=== PATIENT | female | born 1955 | race Caucasian/White ===

== ENCOUNTER 2016-10-31 04:56 | Observation (INO) | payer BC ==
[~2016-10-31 04:56] MED LIST: ASPIRIN325 M3 PO; AVASTIN100 MG/4 M IV; BENADRYL25 M3 PO; CEFDINIR300 M1 PO; CHEMOTHERAPY; CIPRO500 M2 PO; COMPAZINE10 MG PO; CULTURELLE1 EAC1 PO; FLUOROURAC5 GM/100 M IV; HYDROCHLOROTH12.5 M3 PO; HYDROCHLOROTHIA25 M1 PO; IBUPROFEN400 M1 PO; KEPPRA500 M3 PO; METOPROLOL SUC100 M1 PO; MIRALAX17 G2 PO; MOBIC15 M2 PO; NORCO 5-325 TA1 EACH PO; NORVASC10 M2 PO; PRILOSEC OTC20 M1 PO; PRINIVIL20 M1 PO; TOPROL XL50 M1 PO; ZESTRIL20 M3 PO; ZOFRAN8 M1 PO; [UNRECOGNIZED DRUG - OTHER] IV
[2016-10-31 06:00] LABS: ALB/GLOB RATIO 0.5 (0.8-2.0); ALBUMIN 2.2 g/dl (3.5-5.0); ALKALINE PHOSPHATASE 227 U/L (33-138); ALT/SGPT 41 U/L (12-78); ANION GAP 14 mmol/L (0-20); AST/SGOT 22 U/L (10-40); BILIRUBIN,TOTAL 0.8 mg/dl (0-1.5); BLOOD UREA NITROGEN 19 mg/dl (6-24); CALCIUM 8.5 mg/dl (8.5-10.5); CARBON DIOXIDE-VENOUS 22 mmol/L (22-32); CHLORIDE 106 mmol/l (96-110); CREATININE 0.68 mg/dl (0.50-1.10); GLUCOSE 100 mg/dL (70-110); POTASSIUM 4.2 mmol/L (3.7-5.1); SODIUM 138 mmol/L (135-145); eGFR VALUE FOR BLACK >90 mL/Min
[2016-10-31 06:59] LABS: BASO % 0.2 % (0-2); EOS % 0.6 % (0-7); HCT-HEMATOCRIT 26.1 % (34.0-49.0); HGB-HEMOGLOBIN 8.4 gm/dl (12.0-15.5); IMMATURE GRANULOCYTES ABSOLUTE 0.02 tho/cmm (0-0.03); IMMATURE GRANULOCYTES PERCENT 0.4 % (0-0.3); LYMPH % 17.4 % (20-45); LYMPH ABSOLUTE COUNT 0.9 tho/cmm (0.8-4.5); MCH (MEAN CORPUSCULAR HGB) 26.6 pg (28.0-32.0); MCHC MEAN CORPUSCULAR HGB CONC 32.2 % (32.0-36.0); MCV (MEAN CELL VOLUME) 82.6 fl (82.0-96.0); MEAN PLATELET VOLUME 11.6 cmc (9.4-12.4); MONOCYTE ABSOLUTE COUNT 0.8 tho/cmm (0.0-1.2); NEUTROPHIL ABSOLUTE COUNT 3.2 tho/cmm (1.6-8.0); NEUTROPHIL-AUTOMATED 3.2 tho/cmm (1.6-8.0); NEUTROPHILS % 65.4 % (40-80); PLATELET COUNT 190 tho/cmm (150-450); RED BLOOD COUNT 3.16 mil/cmm (4.00-5.20); RED CELL DISTRIBUTION WIDTH 21.1 % (12.4-16.4); WHITE BLOOD COUNT 4.9 tho/cmm (4.0-10.0)
[2016-11-01 06:31] LABS: HCT-HEMATOCRIT 27.6 % (34.0-49.0); HGB-HEMOGLOBIN 8.6 gm/dl (12.0-15.5); MCH (MEAN CORPUSCULAR HGB) 26.2 pg (28.0-32.0); MCHC MEAN CORPUSCULAR HGB CONC 31.2 % (32.0-36.0); MCV (MEAN CELL VOLUME) 84.1 fl (82.0-96.0); MEAN PLATELET VOLUME 9.4 cmc (9.4-12.4); NEUTROPHIL-AUTOMATED 2.8 tho/cmm (1.6-8.0); PLATELET COUNT 267 tho/cmm (150-450); RED BLOOD COUNT 3.28 mil/cmm (4.00-5.20); RED CELL DISTRIBUTION WIDTH 21.7 % (12.4-16.4)
[2016-11-01 06:35] LABS: ANION GAP 13 mmol/L (0-20); BLOOD UREA NITROGEN 17 mg/dl (6-24); CALCIUM 9.1 mg/dl (8.5-10.5); CARBON DIOXIDE-VENOUS 22 mmol/L (22-32); CHLORIDE 108 mmol/l (96-110); CREATININE 0.76 mg/dl (0.50-1.10); GLUCOSE 115 mg/dL (70-110); POTASSIUM 4.2 mmol/L (3.7-5.1); SODIUM 139 mmol/L (135-145); eGFR VALUE FOR BLACK >90 mL/Min
[2016-11-01 08:40] LABS: BAND % 39 % (0-20); BAND ABSOLUTE COUNT 1.6 tho/cmm (0-2.0)
[2016-11-01] MEDS ORDERED: LOVENOX80 MG/0.1 SC (11:06)
[2016-11-01] MEDS ORDERED: NORCO 5-325 TA1 EACH PO (11:09)
[2016-11-01] MEDS ORDERED: PROTONIX40 M2 PO (11:10)
[2016-11-01] MEDS ORDERED: PREDNISONE10 M1 PO (11:14)
== END 2016-11-01 12:15 ==
LOC: EDMED 04:56 → EMR2 06:40 → 5WF 07:45
PROVIDERS: Emergency Medicine Emergency Medical Services; ADMIT Hospitalist
DX: I26.99 Other pulmonary embolism without acute cor pulmonale (principal); I82.621 Acute embolism and thrombosis of deep veins of right upper extremity; R07.81 Pleurodynia; C18.9 Malignant neoplasm of colon, unspecified; C78.7 Secondary malignant neoplasm of liver and intrahepatic bile duct; D64.81 Anemia due to antineoplastic chemotherapy; R91.1 Solitary pulmonary nodule; K44.9 Diaphragmatic hernia without obstruction or gangrene; I10 Essential (primary) hypertension; G89.29 Other chronic pain; M51.37 Other intervertebral disc degeneration, lumbosacral region; Z79.1 Long term (current) use of non-steroidal anti-inflammatories (NSAID); Z79.899 Other long term (current) drug therapy; Z90.89 Acquired absence of other organs; Z98.890 Other specified postprocedural states
CPT/HCPCS: G0378; J1650; J1885; J2270; J2920; J7030; Q9967

== ENCOUNTER 2016-11-30 01:24 | Inpatient (IN) | payer BC ==
[~2016-11-30 01:24] MED LIST changes: +LOVENOX80 MG/0.1 SC; +PREDNISONE10 M1 PO; +PROTONIX40 M2 PO
[2016-11-30 02:28] LABS: HGB-HEMOGLOBIN 6.3 gm/dl (12.0-15.5); MCH (MEAN CORPUSCULAR HGB) 25.3 pg (28.0-32.0); MCV (MEAN CELL VOLUME) 81.1 fl (82.0-96.0); NEUTROPHIL-AUTOMATED 6.6 tho/cmm (1.6-8.0); PLATELET COUNT 86 tho/cmm (150-450); RED BLOOD COUNT 2.49 mil/cmm (4.00-5.20); RED CELL DISTRIBUTION WIDTH 23.6 % (12.4-16.4); WHITE BLOOD COUNT 8.2 tho/cmm (4.0-10.0)
[2016-11-30 02:36] LABS: HCT-HEMATOCRIT 20.2 % (34.0-49.0); MCHC MEAN CORPUSCULAR HGB CONC 31.2 % (32.0-36.0)
[2016-11-30 02:53] LABS: INR 1.2 INR (0.9-1.1); PROTHROMBIN TIME 14.2 SECONDS (9.0-13.6)
[2016-11-30 03:00] LABS: ALB/GLOB RATIO 0.4 (0.8-2.0); ALBUMIN 1.7 g/dl (3.5-5.0); ALT/SGPT 22 U/L (12-78); ANION GAP 21 mmol/L (0-20); AST/SGOT 29 U/L (10-40); BILIRUBIN,TOTAL 0.5 mg/dl (0-1.5); BLOOD UREA NITROGEN 72 mg/dl (6-24); CALCIUM 7.5 mg/dl (8.5-10.5); CARBON DIOXIDE-VENOUS 17 mmol/L (22-32); CHLORIDE 107 mmol/l (96-110); CREATININE 3.11 mg/dl (0.50-1.10); MAGNESIUM 2.1 mg/dl (1.8-2.6); POTASSIUM 3.6 mmol/L (3.7-5.1); SODIUM 141 mmol/L (135-145); eGFR VALUE FOR BLACK 18 mL/Min
[2016-11-30 03:05] LABS: TSH-THYROID STIMULATING HORM. 4.36 uIU/ml (0.40-3.80)
[2016-11-30 03:10] LABS: BAND % 17 % (0-20); BAND ABSOLUTE COUNT 1.4 tho/cmm (0-2.0)
[2016-11-30 03:11] LABS: ALKALINE PHOSPHATASE 455 U/L (33-138); GLUCOSE 65 mg/dL (70-110)
[2016-11-30 03:21] LABS: PROCALCITONIN 82.45 ng/ml (0.05-0.09)
[2016-11-30 03:35] LABS: URINE BILIRUBIN NEGATIVE (NEG); URINE BLOOD SMALL (NEG); URINE GLUCOSE (UA) NEGATIVE (NEG); URINE KETONE NEGATIVE (NEG); URINE LEUKOCYTE ESTERASE POSITIVE (NEG); URINE NITRITE NEGATIVE (NEG); URINE PROTEIN MODERATE (NEG); URINE SPECIFIC GRAVITY 1.015 (1.003-1.030)
[2016-11-30 03:41] LABS: URINE APPEARANCE HAZY; URINE COLOR YELLOW
[2016-11-30 03:50] LABS: URINE BACTERIA 4+; URINE EPITHELIAL CELLS 0-1 /[HPF] (0-10); URINE RBC 0-5 /[HPF] (0-5); URINE WBC 30-50 /[HPF] (0-5)
[2016-11-30 06:56] LABS: ABG CO2 ARTERIAL 17 mmol/L (21-27); ARTERIAL BLD GAS O2 SATURATION 95 % (95-98); ARTERIAL BLOOD GAS PCO2 28 mmHg (32-45); ARTERIAL PO2 73 mmHg (70-100); BICARBONATE 16 mmol/L (21-28); BLOOD GAS BASE EXCESS -8 mM/L (-/+3); PH 7.38 Units (7.35-7.45)
[2016-11-30 08:47] LABS: ANION GAP 16 mmol/L (0-20); BLOOD UREA NITROGEN 65 mg/dl (6-24); CALCIUM 7.2 mg/dl (8.5-10.5); CARBON DIOXIDE-VENOUS 18 mmol/L (22-32); CHLORIDE 110 mmol/l (96-110); CREATININE 2.36 mg/dl (0.50-1.10); POTASSIUM 3.7 mmol/L (3.7-5.1); SODIUM 140 mmol/L (135-145); eGFR VALUE FOR BLACK 25 mL/Min
[2016-11-30 08:49] LABS: GLUCOSE 116 mg/dL (70-110)
[2016-11-30] MEDS ORDERED: MEGESTROL ACETA40 M1 PO (11:11)
[2016-11-30 11:43] LABS: HGB-HEMOGLOBIN 8.1 gm/dl (12.0-15.5)
[2016-11-30] MEDS ORDERED: ZALTRAP (15:40)
[2016-11-30] MEDS ORDERED: [UNRECOGNIZED DRUG - OTHER] (15:41)
[2016-12-01 04:23] LABS: BASO % 0.2 % (0-2); EOS % 0.1 % (0-7); HGB-HEMOGLOBIN 8.9 gm/dl (12.0-15.5); IMMATURE GRANULOCYTES ABSOLUTE 0.31 tho/cmm (0-0.03); IMMATURE GRANULOCYTES PERCENT 2.1 % (0-0.3); LYMPH % 11.6 % (20-45); LYMPH ABSOLUTE COUNT 1.7 tho/cmm (0.8-4.5); MCV (MEAN CELL VOLUME) 81.6 fl (82.0-96.0); MONO % 4.2 % (0-12); MONOCYTE ABSOLUTE COUNT 0.6 tho/cmm (0.0-1.2); NEUTROPHIL ABSOLUTE COUNT 12.2 tho/cmm (1.6-8.0); NEUTROPHIL-AUTOMATED 12.2 tho/cmm (1.6-8.0); NEUTROPHILS % 81.8 % (40-80); PLATELET COUNT 80 tho/cmm (150-450); RED BLOOD COUNT 3.32 mil/cmm (4.00-5.20)
[2016-12-01 04:26] LABS: HCT-HEMATOCRIT 27.1 % (34.0-49.0); MCH (MEAN CORPUSCULAR HGB) 26.8 pg (28.0-32.0); MCHC MEAN CORPUSCULAR HGB CONC 32.8 % (32.0-36.0); WHITE BLOOD COUNT 14.9 tho/cmm (4.0-10.0)
[2016-12-01 04:43] LABS: ALB/GLOB RATIO 0.3 (0.8-2.0); ALBUMIN 1.4 g/dl (3.5-5.0); ALKALINE PHOSPHATASE 370 U/L (33-138); ALT/SGPT 20 U/L (12-78); ANION GAP 13 mmol/L (0-20); AST/SGOT 37 U/L (10-40); BLOOD UREA NITROGEN 38 mg/dl (6-24); CALCIUM 7.9 mg/dl (8.5-10.5); CARBON DIOXIDE-VENOUS 20 mmol/L (22-32); CHLORIDE 116 mmol/l (96-110); GLUCOSE 102 mg/dL (70-110); POTASSIUM 3.8 mmol/L (3.7-5.1); SODIUM 145 mmol/L (135-145)
[2016-12-01 04:45] LABS: BILIRUBIN,TOTAL 0.8 mg/dl (0-1.5); C-REACTIVE PROTEIN 23.7 mg/dl (0-0.9); CREATININE 1.23 mg/dl (0.50-1.10); eGFR VALUE FOR BLACK 55 mL/Min
[2016-12-02 13:22] LABS: BLOOD UREA NITROGEN 21 mg/dl (6-24); CALCIUM 7.5 mg/dl (8.5-10.5); CARBON DIOXIDE-VENOUS 18 mmol/L (22-32); CHLORIDE 117 mmol/l (96-110); CREATININE 0.86 mg/dl (0.50-1.10); SODIUM 145 mmol/L (135-145); eGFR VALUE FOR BLACK 85 mL/Min
[2016-12-02 13:43] LABS: ANION GAP 13 mmol/L (0-20); GLUCOSE 158 mg/dL (70-110)
[2016-12-03 05:47] LABS: BASO % 0.1 % (0-2); EOS % 0.2 % (0-7); HGB-HEMOGLOBIN 7.6 gm/dl (12.0-15.5); IMMATURE GRANULOCYTES PERCENT 1.7 % (0-0.3); LYMPH ABSOLUTE COUNT 1.6 tho/cmm (0.8-4.5); MCH (MEAN CORPUSCULAR HGB) 26.2 pg (28.0-32.0); MCHC MEAN CORPUSCULAR HGB CONC 31.7 % (32.0-36.0); MCV (MEAN CELL VOLUME) 82.8 fl (82.0-96.0); MONOCYTE ABSOLUTE COUNT 0.9 tho/cmm (0.0-1.2); NEUTROPHIL ABSOLUTE COUNT 14.4 tho/cmm (1.6-8.0); NEUTROPHIL-AUTOMATED 14.4 tho/cmm (1.6-8.0); PLATELET COUNT 100 tho/cmm (150-450); RED CELL DISTRIBUTION WIDTH 21.4 % (12.4-16.4); WHITE BLOOD COUNT 17.2 tho/cmm (4.0-10.0)
[2016-12-03 06:03] LABS: ANION GAP 12 mmol/L (0-20); BLOOD UREA NITROGEN 15 mg/dl (6-24); CALCIUM 7.6 mg/dl (8.5-10.5); CARBON DIOXIDE-VENOUS 19 mmol/L (22-32); CHLORIDE 114 mmol/l (96-110); CREATININE 0.76 mg/dl (0.50-1.10); GLUCOSE 91 mg/dL (70-110); POTASSIUM 3.2 mmol/L (3.7-5.1); SODIUM 142 mmol/L (135-145); eGFR VALUE FOR BLACK >90 mL/Min
[2016-12-03 06:21] LABS: PROCALCITONIN 27.26 ng/ml (0.05-0.09)
[2016-12-04 05:14] LABS: BASO % 0.2 % (0-2); EOS % 0.4 % (0-7); EOSINOPHIL ABSOLUTE COUNT 0.1 tho/cmm (0.0-0.7); HCT-HEMATOCRIT 28.1 % (34.0-49.0); HGB-HEMOGLOBIN 8.8 gm/dl (12.0-15.5); IMMATURE GRANULOCYTES ABSOLUTE 0.43 tho/cmm (0-0.03); IMMATURE GRANULOCYTES PERCENT 2.3 % (0-0.3); LYMPH % 6.9 % (20-45); LYMPH ABSOLUTE COUNT 1.3 tho/cmm (0.8-4.5); MCH (MEAN CORPUSCULAR HGB) 26.4 pg (28.0-32.0); MCHC MEAN CORPUSCULAR HGB CONC 31.3 % (32.0-36.0); MCV (MEAN CELL VOLUME) 84.4 fl (82.0-96.0); MONO % 3.3 % (0-12); MONOCYTE ABSOLUTE COUNT 0.6 tho/cmm (0.0-1.2); NEUTROPHILS % 86.9 % (40-80); PLATELET COUNT 120 tho/cmm (150-450); RED BLOOD COUNT 3.33 mil/cmm (4.00-5.20); RED CELL DISTRIBUTION WIDTH 21.2 % (12.4-16.4); WHITE BLOOD COUNT 18.4 tho/cmm (4.0-10.0)
[2016-12-04 05:23] LABS: ANION GAP 15 mmol/L (0-20); BLOOD UREA NITROGEN 12 mg/dl (6-24); CALCIUM 7.9 mg/dl (8.5-10.5); CARBON DIOXIDE-VENOUS 20 mmol/L (22-32); CHLORIDE 110 mmol/l (96-110); CREATININE 0.79 mg/dl (0.50-1.10); GLUCOSE 121 mg/dL (70-110); POTASSIUM 3.5 mmol/L (3.7-5.1); SODIUM 141 mmol/L (135-145); eGFR VALUE FOR BLACK >90 mL/Min
[2016-12-05 05:34] LABS: ALB/GLOB RATIO 0.3 (0.8-2.0); ALBUMIN 1.5 g/dl (3.5-5.0); ALT/SGPT 22 U/L (12-78); ANION GAP 14 mmol/L (0-20); AST/SGOT 38 U/L (10-40); BILIRUBIN,TOTAL 0.8 mg/dl (0-1.5); BLOOD UREA NITROGEN 10 mg/dl (6-24); CALCIUM 7.7 mg/dl (8.5-10.5); CARBON DIOXIDE-VENOUS 22 mmol/L (22-32); CHLORIDE 108 mmol/l (96-110); CREATININE 0.72 mg/dl (0.50-1.10); GLUCOSE 84 mg/dL (70-110); POTASSIUM 4.2 mmol/L (3.7-5.1); SODIUM 140 mmol/L (135-145); eGFR VALUE FOR BLACK >90 mL/Min
[2016-12-05 05:53] LABS: HCT-HEMATOCRIT 27.3 % (34.0-49.0); HGB-HEMOGLOBIN 8.5 gm/dl (12.0-15.5); MCH (MEAN CORPUSCULAR HGB) 26.2 pg (28.0-32.0); MCHC MEAN CORPUSCULAR HGB CONC 31.1 % (32.0-36.0); MCV (MEAN CELL VOLUME) 84.3 fl (82.0-96.0); NEUTROPHIL-AUTOMATED 14.4 tho/cmm (1.6-8.0); RED BLOOD COUNT 3.24 mil/cmm (4.00-5.20); RED CELL DISTRIBUTION WIDTH 21.3 % (12.4-16.4); WHITE BLOOD COUNT 16.4 tho/cmm (4.0-10.0)
[2016-12-05 06:09] LABS: ALKALINE PHOSPHATASE 624 U/L (33-138)
[2016-12-05 08:57] LABS: PLATELET COUNT 119 tho/cmm (150-450)
[2016-12-05 09:04] LABS: BAND % 24 % (0-20); BAND ABSOLUTE COUNT 3.9 tho/cmm (0-2.0)
[2016-12-05 10:13] LABS: ABG CO2 ARTERIAL 22 mmol/L (21-27); ARTERIAL BLD GAS O2 SATURATION 98 % (95-98); ARTERIAL BLOOD GAS PCO2 31 mmHg (32-45); ARTERIAL PO2 90 mmHg (70-100); BICARBONATE 21 mmol/L (21-28); BLOOD GAS BASE EXCESS -2 mM/L (-/+3); PH 7.45 Units (7.35-7.45)
[2016-12-05 13:55] LABS: URINE BILIRUBIN NEGATIVE (NEG); URINE BLOOD NEGATIVE (NEG); URINE GLUCOSE (UA) NEGATIVE (NEG); URINE KETONE NEGATIVE (NEG); URINE LEUKOCYTE ESTERASE POSITIVE (NEG); URINE NITRITE NEGATIVE (NEG); URINE PROTEIN MODERATE (NEG); URINE SPECIFIC GRAVITY 1.015 (1.003-1.030)
[2016-12-05 13:59] LABS: URINE APPEARANCE HAZY; URINE COLOR DARK YELLOW
[2016-12-05 14:29] LABS: URINE EPITHELIAL CELLS 25-30 /[HPF] (0-10)
[2016-12-05 16:20] LABS: HGB-HEMOGLOBIN 6.5 gm/dl (12.0-15.5); MCV (MEAN CELL VOLUME) 84.6 fl (82.0-96.0); RED CELL DISTRIBUTION WIDTH 21.5 % (12.4-16.4)
[2016-12-05 16:23] LABS: HCT-HEMATOCRIT 20.3 % (34.0-49.0)
[2016-12-06 06:08] LABS: BASO % 0.1 % (0-2); EOS % 0.1 % (0-7); IMMATURE GRANULOCYTES ABSOLUTE 0.14 tho/cmm (0-0.03); LYMPH ABSOLUTE COUNT 0.9 tho/cmm (0.8-4.5); MCV (MEAN CELL VOLUME) 85.3 fl (82.0-96.0); MONO % 4.5 % (0-12); MONOCYTE ABSOLUTE COUNT 0.6 tho/cmm (0.0-1.2); NEUTROPHIL ABSOLUTE COUNT 11.7 tho/cmm (1.6-8.0); NEUTROPHIL-AUTOMATED 11.7 tho/cmm (1.6-8.0); NEUTROPHILS % 87.3 % (40-80); PLATELET COUNT 127 tho/cmm (150-450); RED BLOOD COUNT 3.12 mil/cmm (4.00-5.20); RED CELL DISTRIBUTION WIDTH 19.8 % (12.4-16.4); WHITE BLOOD COUNT 13.4 tho/cmm (4.0-10.0)
[2016-12-06 06:16] LABS: ALB/GLOB RATIO 0.3 (0.8-2.0); ALBUMIN 1.2 g/dl (3.5-5.0); ALT/SGPT 19 U/L (12-78); ANION GAP 13 mmol/L (0-20); AST/SGOT 40 U/L (10-40); BILIRUBIN,TOTAL 0.6 mg/dl (0-1.5); BLOOD UREA NITROGEN 9 mg/dl (6-24); CALCIUM 7.3 mg/dl (8.5-10.5); CARBON DIOXIDE-VENOUS 23 mmol/L (22-32); CHLORIDE 109 mmol/l (96-110); GLUCOSE 84 mg/dL (70-110); POTASSIUM 3.5 mmol/L (3.7-5.1); SODIUM 141 mmol/L (135-145); eGFR VALUE FOR BLACK >90 mL/Min
[2016-12-06 06:23] LABS: HCT-HEMATOCRIT 26.6 % (34.0-49.0); HGB-HEMOGLOBIN 8.7 gm/dl (12.0-15.5); MCH (MEAN CORPUSCULAR HGB) 27.8 pg (28.0-32.0); MCHC MEAN CORPUSCULAR HGB CONC 32.7 % (32.0-36.0)
[2016-12-06 06:38] LABS: ALKALINE PHOSPHATASE 503 U/L (33-138)
[2016-12-07 07:31] LABS: BASO % 0.1 % (0-2); EOS % 0.2 % (0-7); HGB-HEMOGLOBIN 7.5 gm/dl (12.0-15.5); IMMATURE GRANULOCYTES PERCENT 0.9 % (0-0.3); LYMPH % 7.3 % (20-45); LYMPH ABSOLUTE COUNT 0.8 tho/cmm (0.8-4.5); MCV (MEAN CELL VOLUME) 85.8 fl (82.0-96.0); MEAN PLATELET VOLUME 10.8 cmc (9.4-12.4); MONO % 5.2 % (0-12); MONOCYTE ABSOLUTE COUNT 0.6 tho/cmm (0.0-1.2); NEUTROPHIL ABSOLUTE COUNT 9.7 tho/cmm (1.6-8.0); NEUTROPHIL-AUTOMATED 9.7 tho/cmm (1.6-8.0); NEUTROPHILS % 86.3 % (40-80); PLATELET COUNT 125 tho/cmm (150-450); RED BLOOD COUNT 2.68 mil/cmm (4.00-5.20); RED CELL DISTRIBUTION WIDTH 20.4 % (12.4-16.4); WHITE BLOOD COUNT 11.3 tho/cmm (4.0-10.0)
[2016-12-07 07:36] LABS: MCHC MEAN CORPUSCULAR HGB CONC 32.6 % (32.0-36.0)
[2016-12-07 07:44] LABS: ALB/GLOB RATIO 0.3 (0.8-2.0); ALT/SGPT 15 U/L (12-78); ANION GAP 11 mmol/L (0-20); AST/SGOT 32 U/L (10-40); BILIRUBIN,TOTAL 0.5 mg/dl (0-1.5); BLOOD UREA NITROGEN 6 mg/dl (6-24); CARBON DIOXIDE-VENOUS 21 mmol/L (22-32); CHLORIDE 115 mmol/l (96-110); CREATININE 0.33 mg/dl (0.50-1.10); MAGNESIUM 1.2 mg/dl (1.8-2.6); POTASSIUM 3.1 mmol/L (3.7-5.1); SODIUM 144 mmol/L (135-145); eGFR VALUE FOR BLACK >90 mL/Min
[2016-12-07 07:59] LABS: GLUCOSE 65 mg/dL (70-110)
[2016-12-07 08:00] LABS: ALKALINE PHOSPHATASE 481 U/L (33-138); CALCIUM 6.2 mg/dl (8.5-10.5)
[2016-12-07 08:05] LABS: PROCALCITONIN 23.21 ng/ml (0.05-0.09)
[2016-12-07 18:21] LABS: HGB-HEMOGLOBIN 9.3 gm/dl (12.0-15.5)
[2016-12-08 06:51] LABS: INR 1.2 INR (0.9-1.1); PROTHROMBIN TIME 13.4 SECONDS (9.0-13.6)
[2016-12-08 06:55] LABS: BASO % 0.2 % (0-2); EOS % 0.1 % (0-7); HCT-HEMATOCRIT 27.2 % (34.0-49.0); HGB-HEMOGLOBIN 8.8 gm/dl (12.0-15.5); IMMATURE GRANULOCYTES PERCENT 0.7 % (0-0.3); LYMPH % 7.6 % (20-45); LYMPH ABSOLUTE COUNT 1.1 tho/cmm (0.8-4.5); MCH (MEAN CORPUSCULAR HGB) 27.9 pg (28.0-32.0); MCHC MEAN CORPUSCULAR HGB CONC 32.4 % (32.0-36.0); MCV (MEAN CELL VOLUME) 86.3 fl (82.0-96.0); MEAN PLATELET VOLUME 10.8 cmc (9.4-12.4); MONO % 4.7 % (0-12); MONOCYTE ABSOLUTE COUNT 0.7 tho/cmm (0.0-1.2); NEUTROPHIL ABSOLUTE COUNT 12.5 tho/cmm (1.6-8.0); NEUTROPHIL-AUTOMATED 12.5 tho/cmm (1.6-8.0); NEUTROPHILS % 86.7 % (40-80); PLATELET COUNT 133 tho/cmm (150-450); RED BLOOD COUNT 3.15 mil/cmm (4.00-5.20); RED CELL DISTRIBUTION WIDTH 21.2 % (12.4-16.4); WHITE BLOOD COUNT 14.4 tho/cmm (4.0-10.0)
[2016-12-08 07:11] LABS: ALB/GLOB RATIO 0.2 (0.8-2.0); ALT/SGPT 15 U/L (12-78); AST/SGOT 44 U/L (10-40); BLOOD UREA NITROGEN 7 mg/dl (6-24); CARBON DIOXIDE-VENOUS 23 mmol/L (22-32); CHLORIDE 110 mmol/l (96-110); CREATININE 0.47 mg/dl (0.50-1.10); MAGNESIUM 1.6 mg/dl (1.8-2.6); SODIUM 140 mmol/L (135-145); eGFR VALUE FOR BLACK >90 mL/Min
[2016-12-08 07:14] LABS: ALKALINE PHOSPHATASE 632 U/L (33-138); ANION GAP 11 mmol/L (0-20); BILIRUBIN,TOTAL 0.8 mg/dl (0-1.5); POTASSIUM 4.1 mmol/L (3.7-5.1)
[2016-12-08 07:16] LABS: CALCIUM 6.1 mg/dl (8.5-10.5); GLUCOSE 66 mg/dL (70-110)
[2016-12-09 06:14] LABS: BASO % 0.2 % (0-2); EOS % 0.1 % (0-7); HCT-HEMATOCRIT 26.8 % (34.0-49.0); HGB-HEMOGLOBIN 8.6 gm/dl (12.0-15.5); IMMATURE GRANULOCYTES ABSOLUTE 0.11 tho/cmm (0-0.03); IMMATURE GRANULOCYTES PERCENT 0.9 % (0-0.3); LYMPH ABSOLUTE COUNT 1.4 tho/cmm (0.8-4.5); MCH (MEAN CORPUSCULAR HGB) 27.8 pg (28.0-32.0); MCHC MEAN CORPUSCULAR HGB CONC 32.1 % (32.0-36.0); MCV (MEAN CELL VOLUME) 86.7 fl (82.0-96.0); MEAN PLATELET VOLUME 10.7 cmc (9.4-12.4); MONO % 5.6 % (0-12); MONOCYTE ABSOLUTE COUNT 0.7 tho/cmm (0.0-1.2); NEUTROPHIL ABSOLUTE COUNT 10.4 tho/cmm (1.6-8.0); NEUTROPHIL-AUTOMATED 10.4 tho/cmm (1.6-8.0); NEUTROPHILS % 82.2 % (40-80); PLATELET COUNT 187 tho/cmm (150-450); RED BLOOD COUNT 3.09 mil/cmm (4.00-5.20); RED CELL DISTRIBUTION WIDTH 21.1 % (12.4-16.4); WHITE BLOOD COUNT 12.6 tho/cmm (4.0-10.0)
[2016-12-09 06:30] LABS: ALB/GLOB RATIO 0.3 (0.8-2.0); ALBUMIN 1.4 g/dl (3.5-5.0); ALT/SGPT 16 U/L (12-78); ANION GAP 11 mmol/L (0-20); AST/SGOT 50 U/L (10-40); BILIRUBIN,TOTAL 0.9 mg/dl (0-1.5); BLOOD UREA NITROGEN 6 mg/dl (6-24); CARBON DIOXIDE-VENOUS 25 mmol/L (22-32); CHLORIDE 104 mmol/l (96-110); CREATININE 0.47 mg/dl (0.50-1.10); GLUCOSE 80 mg/dL (70-110); MAGNESIUM 2.2 mg/dl (1.8-2.6); POTASSIUM 3.8 mmol/L (3.7-5.1); SODIUM 136 mmol/L (135-145); eGFR VALUE FOR BLACK >90 mL/Min
[2016-12-09 06:32] LABS: ALKALINE PHOSPHATASE 696 U/L (33-138); CALCIUM 7.8 mg/dl (8.5-10.5)
[2016-12-09 17:36] LABS: BODY FLUID TYPE THORACENTESIS
[2016-12-10 05:07] LABS: BASO % 0.2 % (0-2); HCT-HEMATOCRIT 26.4 % (34.0-49.0); HGB-HEMOGLOBIN 8.4 gm/dl (12.0-15.5); IMMATURE GRANULOCYTES PERCENT 0.7 % (0-0.3); LYMPH % 11.2 % (20-45); LYMPH ABSOLUTE COUNT 1.5 tho/cmm (0.8-4.5); MCH (MEAN CORPUSCULAR HGB) 27.8 pg (28.0-32.0); MCHC MEAN CORPUSCULAR HGB CONC 31.8 % (32.0-36.0); MCV (MEAN CELL VOLUME) 87.4 fl (82.0-96.0); MEAN PLATELET VOLUME 10.3 cmc (9.4-12.4); MONO % 5.8 % (0-12); MONOCYTE ABSOLUTE COUNT 0.8 tho/cmm (0.0-1.2); NEUTROPHILS % 82.1 % (40-80); PLATELET COUNT 211 tho/cmm (150-450); RED BLOOD COUNT 3.02 mil/cmm (4.00-5.20); RED CELL DISTRIBUTION WIDTH 21.3 % (12.4-16.4); WHITE BLOOD COUNT 13.4 tho/cmm (4.0-10.0)
[2016-12-11 05:05] LABS: ALB/GLOB RATIO 0.3 (0.8-2.0); ALBUMIN 1.3 g/dl (3.5-5.0); ALT/SGPT 19 U/L (12-78); ANION GAP 11 mmol/L (0-20); AST/SGOT 63 U/L (10-40); BILIRUBIN,TOTAL 0.9 mg/dl (0-1.5); BLOOD UREA NITROGEN 6 mg/dl (6-24); CALCIUM 7.7 mg/dl (8.5-10.5); CARBON DIOXIDE-VENOUS 27 mmol/L (22-32); CHLORIDE 105 mmol/l (96-110); CREATININE 0.49 mg/dl (0.50-1.10); GLUCOSE 75 mg/dL (70-110); SODIUM 139 mmol/L (135-145); eGFR VALUE FOR BLACK >90 mL/Min
[2016-12-11 05:11] LABS: ALKALINE PHOSPHATASE 738 U/L (33-138)
[2016-12-11 05:16] LABS: BASO % 0.2 % (0-2); HCT-HEMATOCRIT 26.1 % (34.0-49.0); HGB-HEMOGLOBIN 8.2 gm/dl (12.0-15.5); IMMATURE GRANULOCYTES ABSOLUTE 0.05 tho/cmm (0-0.03); IMMATURE GRANULOCYTES PERCENT 0.4 % (0-0.3); LYMPH % 9.7 % (20-45); LYMPH ABSOLUTE COUNT 1.3 tho/cmm (0.8-4.5); MCH (MEAN CORPUSCULAR HGB) 27.7 pg (28.0-32.0); MCHC MEAN CORPUSCULAR HGB CONC 31.4 % (32.0-36.0); MCV (MEAN CELL VOLUME) 88.2 fl (82.0-96.0); MEAN PLATELET VOLUME 10.3 cmc (9.4-12.4); MONO % 6.1 % (0-12); MONOCYTE ABSOLUTE COUNT 0.8 tho/cmm (0.0-1.2); NEUTROPHIL ABSOLUTE COUNT 11.4 tho/cmm (1.6-8.0); NEUTROPHIL-AUTOMATED 11.4 tho/cmm (1.6-8.0); NEUTROPHILS % 83.6 % (40-80); PLATELET COUNT 239 tho/cmm (150-450); RED BLOOD COUNT 2.96 mil/cmm (4.00-5.20); RED CELL DISTRIBUTION WIDTH 21.3 % (12.4-16.4); WHITE BLOOD COUNT 13.6 tho/cmm (4.0-10.0)
[2016-12-12 05:42] LABS: BASO % 0.2 % (0-2); HCT-HEMATOCRIT 25.5 % (34.0-49.0); HGB-HEMOGLOBIN 8.2 gm/dl (12.0-15.5); IMMATURE GRANULOCYTES ABSOLUTE 0.04 tho/cmm (0-0.03); IMMATURE GRANULOCYTES PERCENT 0.4 % (0-0.3); LYMPH % 9.1 % (20-45); MCH (MEAN CORPUSCULAR HGB) 28.4 pg (28.0-32.0); MCHC MEAN CORPUSCULAR HGB CONC 32.2 % (32.0-36.0); MCV (MEAN CELL VOLUME) 88.2 fl (82.0-96.0); MEAN PLATELET VOLUME 9.3 cmc (9.4-12.4); MONOCYTE ABSOLUTE COUNT 0.8 tho/cmm (0.0-1.2); NEUTROPHIL ABSOLUTE COUNT 9.4 tho/cmm (1.6-8.0); NEUTROPHIL-AUTOMATED 9.4 tho/cmm (1.6-8.0); NEUTROPHILS % 83.3 % (40-80); PLATELET COUNT 217 tho/cmm (150-450); RED BLOOD COUNT 2.89 mil/cmm (4.00-5.20); RED CELL DISTRIBUTION WIDTH 21.3 % (12.4-16.4); WHITE BLOOD COUNT 11.2 tho/cmm (4.0-10.0)
[2016-12-12 06:06] LABS: ALB/GLOB RATIO 0.3 (0.8-2.0); ALBUMIN 1.4 g/dl (3.5-5.0); ALT/SGPT 22 U/L (12-78); ANION GAP 13 mmol/L (0-20); AST/SGOT 64 U/L (10-40); BLOOD UREA NITROGEN 7 mg/dl (6-24); CALCIUM 7.9 mg/dl (8.5-10.5); CARBON DIOXIDE-VENOUS 24 mmol/L (22-32); CHLORIDE 106 mmol/l (96-110); CREATININE 0.52 mg/dl (0.50-1.10); GLUCOSE 79 mg/dL (70-110); POTASSIUM 3.9 mmol/L (3.7-5.1); PREALBUMIN 5.3 mg/dl (20.0-40.0); SODIUM 139 mmol/L (135-145); eGFR VALUE FOR BLACK >90 mL/Min
[2016-12-12 06:11] LABS: ALKALINE PHOSPHATASE 851 U/L (33-138)
[2016-12-12 08:19] LABS: BODY FLUID TYPE PLEURAL
[2016-12-13 05:47] LABS: BASO % 0.3 % (0-2); HCT-HEMATOCRIT 25.5 % (34.0-49.0); HGB-HEMOGLOBIN 8.1 gm/dl (12.0-15.5); IMMATURE GRANULOCYTES ABSOLUTE 0.04 tho/cmm (0-0.03); IMMATURE GRANULOCYTES PERCENT 0.4 % (0-0.3); LYMPH % 10.9 % (20-45); LYMPH ABSOLUTE COUNT 1.1 tho/cmm (0.8-4.5); MCH (MEAN CORPUSCULAR HGB) 28.3 pg (28.0-32.0); MCHC MEAN CORPUSCULAR HGB CONC 31.8 % (32.0-36.0); MCV (MEAN CELL VOLUME) 89.2 fl (82.0-96.0); MEAN PLATELET VOLUME 9.3 cmc (9.4-12.4); MONO % 9.2 % (0-12); MONOCYTE ABSOLUTE COUNT 0.9 tho/cmm (0.0-1.2); NEUTROPHIL ABSOLUTE COUNT 7.8 tho/cmm (1.6-8.0); NEUTROPHIL-AUTOMATED 7.8 tho/cmm (1.6-8.0); NEUTROPHILS % 79.2 % (40-80); PLATELET COUNT 225 tho/cmm (150-450); RED BLOOD COUNT 2.86 mil/cmm (4.00-5.20); RED CELL DISTRIBUTION WIDTH 21.6 % (12.4-16.4); WHITE BLOOD COUNT 9.8 tho/cmm (4.0-10.0)
[2016-12-13 06:03] LABS: ALB/GLOB RATIO 0.3 (0.8-2.0); ALBUMIN 1.3 g/dl (3.5-5.0); ALT/SGPT 21 U/L (12-78); ANION GAP 12 mmol/L (0-20); AST/SGOT 68 U/L (10-40); BILIRUBIN,TOTAL 1.1 mg/dl (0-1.5); BLOOD UREA NITROGEN 6 mg/dl (6-24); CALCIUM 7.7 mg/dl (8.5-10.5); CARBON DIOXIDE-VENOUS 26 mmol/L (22-32); CHLORIDE 107 mmol/l (96-110); CREATININE 0.45 mg/dl (0.50-1.10); GLUCOSE 87 mg/dL (70-110); POTASSIUM 3.9 mmol/L (3.7-5.1); SODIUM 141 mmol/L (135-145); eGFR VALUE FOR BLACK >90 mL/Min
[2016-12-13 06:05] LABS: ALKALINE PHOSPHATASE 842 U/L (33-138)
[2016-12-14] MEDS ORDERED: MIRALAX17 G2 PO (11:52)
[2016-12-14] MEDS ORDERED: SENNA-S TABLET1 EAC3 PO (11:53)
[2016-12-14] MEDS ORDERED: OXYCONTIN10 M2 PO (11:54)
[2016-12-14] MEDS ORDERED: OXYCODONE20 MG/1 M3 PO/SL (11:54)
[2016-12-14] MEDS ORDERED: TYLENOL EXTRA500 M1 PO (11:55)
[2016-12-14] MEDS ORDERED: CIPRO500 M2 PO (11:57)
[2016-12-14] MEDS ORDERED: GABAPENTIN100 M1 PO (12:02)
[2016-12-14] MEDS ORDERED: BISCOLAX10 MG PR (12:04)
[2016-12-14] MEDS ORDERED: CITRATE OF MAG300 M1 PO (12:13)
--- NOTE | 2016-12-14 14:37 | NUR ---
Spoke with pt and family then called [facility] re dc plan. Spoke with Mil[facility] x3, information faxed to them. [facility] called , they will meet pt at home at 1500 today. Keo Harley included in dc plan. Much support to pt and family. , son and daughter here.
== END 2016-12-14 13:45 | disposition hospice, home (50) | DRG 871 ==
LOC: EDMED 01:24 → EMR2 05:31 → CCU 05:36 → 5WF 12-01 14:45
PROVIDERS: Emergency Medicine; Family Medicine; Internal Medicine; ADMIT Family Medicine
PROC: 02HV33Z Insertion of Infusion Device into Superior Vena Cava, Percutaneous Approach (ICD-10-PCS; 2016-11-30)
PROC: B548ZZA Ultrasonography of Superior Vena Cava, Guidance (ICD-10-PCS; 2016-11-30)
PROC: 30233N1 Transfusion of Nonautologous Red Blood Cells into Peripheral Vein, Percutaneous Approach (ICD-10-PCS; 2016-11-30)
PROC: 0W993ZX Drainage of Right Pleural Cavity, Percutaneous Approach, Diagnostic (ICD-10-PCS; principal; 2016-12-09)
DX: A41.9 Sepsis, unspecified organism (principal); R65.21 Severe sepsis with septic shock; I26.99 Other pulmonary embolism without acute cor pulmonale; J86.9 Pyothorax without fistula; E43 Unspecified severe protein-calorie malnutrition; J90 Pleural effusion, not elsewhere classified; D61.818 Other pancytopenia; E87.2 Acidosis; D62 Acute posthemorrhagic anemia; K92.2 Gastrointestinal hemorrhage, unspecified; Z68.1 Body mass index [BMI] 19.9 or less, adult; N17.9 Acute kidney failure, unspecified; C18.9 Malignant neoplasm of colon, unspecified; C78.7 Secondary malignant neoplasm of liver and intrahepatic bile duct; N39.0 Urinary tract infection, site not specified; K59.00 Constipation, unspecified; Z51.5 Encounter for palliative care; Z86.718 Personal history of other venous thrombosis and embolism; Z92.21 Personal history of antineoplastic chemotherapy; Z90.79 Acquired absence of other genital organ(s); I10 Essential (primary) hypertension; R53.81 Other malaise; Z86.711 Personal history of pulmonary embolism; Z79.01 Long term (current) use of anticoagulants; B37.9 Candidiasis, unspecified; D64.81 Anemia due to antineoplastic chemotherapy; D69.6 Thrombocytopenia, unspecified; K44.9 Diaphragmatic hernia without obstruction or gangrene
CPT/HCPCS: C1751; C9113; J0131; J1170; J1335; J1650; J1940; J2060; J2212; J2270; J2543; J3370; J3475; J7030; J7040; J7050; P9016; P9045; Q9967